=== PATIENT | female | born 1945 | race African-American/Black ===

== ENCOUNTER → 2016-12-12 | Outpatient (CLI) | payer MEDICARE, OTHER ==
[~2016-12-12] MED LIST: ERGO50000 PO
[2016-12-12 09:33] LABS: BLOOD GAS BASE EXCESS 1.2 mmol/L (-2-2); BLOOD GAS CARBOXYHEMOGLOBIN 1.8 % (0-4); BLOOD GAS HCO3 25 mmol/L (22-26); BLOOD GAS METHEMOGLOBIN 1.1 % (0-2); BLOOD GAS O2 HGB SATURATION 93 % (90-100); BLOOD GAS PCO2 39 mmHg (38-42); BLOOD GAS PO2 80 mmHg (61-120); BLOOD GAS TOTAL HGB 13.7 G/DL (12.0-16.0); TEMP CORR TO 98.6
[2016-12-12 09:34] LABS: CRITICAL VALUE NO; DRAW SITE RT RADIAL; FIO2 21 %; NUMBER OF ARTERIAL PUNCTURES 1; STAT NO; ULNAR PULSE PRESENT
--- NOTE | 2016-12-13 08:46 | RSPPFT ---
DATE OF PROCEDURE: 12/12/16 COMMENTS: Spirometry with FVC of 1.8 predicted 2.9, FEv1 of 1.1 predicted 2.1, FEV1/FVC ratio 66% predicted 71%. Post-bronchodilator FVC increases to 2.0 and FEV1 to 1.6. RV is increased to 2.5 predicted 2.0 implying air trapping. IMPRESSION: On the basis of the above, patient has an obstructive lung defect with responsiveness to acutely inhaled bronchodilator and decreased DLCO.
== END ==
LOC: HRSP 07:56
PROVIDERS: ATTEND Internal Medicine Pulmonary Disease
DX: R06.02 Shortness of breath (principal)
CPT/HCPCS: 36600; 82805; 94060; 94620; 94726; 94729